=== PATIENT | female | born 2000 | race Caucasian/White ===

== ENCOUNTER 2022-08-28 07:55 | Outpatient (CLI) | payer MEDICAID ==
[~2022-08-28] VITALS: Ht 162.6 cm; Wt 77.3 kg
--- NOTE | 2022-08-28 08:15 | NUR ---
0815 22.2, G2L1 arrives on unit with c/o low blood pressure and dizziness. Ambulatory to [facility]. EFM explained and placed. Patient denies any LOF or VB. Reports normal movement. Assessment completed. VS obtained. 0831 Dr. Byrd to bedside. Reviews plan of care with patient. Reviews FHR strip. 0835EFM off per Dr. Byrd. Orders to discharge home. 0855Discharge instructions reviewed. Patient ambulatory off unit.
[2022-08-28 08:20] VITALS: BP 107/74; PULSE 83; TEMP 98
[2022-08-28] MEDS ORDERED: PRENATAL MVI (08:41)
[2022-08-28 08:45] VITALS: BP 110/74; PULSE 76
== END 2022-08-28 08:55 | disposition home or self-care (01) ==
LOC: LDRO 07:55
DX: O26.899 Other specified pregnancy related conditions, unspecified trimester (principal); R03.1 Nonspecific low blood-pressure reading; Z3A.22 22 weeks gestation of pregnancy